=== PATIENT | female | born 1945 | race Caucasian/White ===

== ENCOUNTER 2017-04-26 01:01 | Inpatient (IN) ==
[2017-04-26] MEDS ORDERED: ONDANSETRON 4 MG/2 ML VIAL IV STA (01:20)
[2017-04-26] MEDS ORDERED: HYDROmorphone 2 MG/1 ML VIAL IV STA (01:20)
--- NOTE | 2017-04-26 01:26 | Emergency Department Note ---
Arrival - Arrival ED Nursing Triage Note: Pt arrives via ems with complaints of falling. Pt states that she did hit her head but did not have any loc. Hematoma noted to upper right forehead. Pt also complains of right hip pain. States that she can not bear any weight. + pulse noted + motor/sensory function noted to affected limb. No deformity or rotation noted at time of triage. Mode of Arrival: Stretcher Limitations: No Limitations Source: Patient - History of Present Illness Onset (ago): hour(s) (Patient presents 1 hour post incident) Date of Last Menstrual Period: pm <Felix Burgos - Last Filed: 04/26/17 01:23> <Behzad Kaur - Last Filed: 04/26/17 03:30> - Arrival Chief Complaint: Fall Stated Complaint: fall Time Seen by Provider: 04/26/17 01:20 - History of Present Illness HPI Narrative: This 71-year-old white female presents 1 hour post falling after going to sleep and getting up to go to the bathroom. The patient landed on her right side and since that time has not been able to weight-bear on her right leg. During the course the fall she bounced her head off the floor and now has a large bump on her right forehead. She denies loss of consciousness. She she also states a significant amount of low back pain after fall with radiation of the pain over both buttocks. Otherwise, she is without any other injury and is medically stable at this point time. (Felix Burgos) Allergies/Adverse Reactions: Allergies Allergy/AdvReac Type Severity Reaction Status Date / Time sulfamethoxazole AdvReac Mild Nausea Verified 07/24/16 06:14 [From Bactrim] trimethoprim [From Bactrim] AdvReac Mild Nausea Verified 07/24/16 06:14 Home Medications: Home Medications Medication Instructions Recorded Confirmed Type No Known Home Medications [No 04/26/17 04/26/17 History Known Home Medications] Review of System - Review of System 12 point system: reviewed and no additional remarkable complaints except as stated - Review of System Constitutional: Present: as per HPI Musculoskeletal: Present: as per HPI Neurological: Present: as per HPI <Felix Burgos - Last Filed: 04/26/17 01:23> Medical,Surgical,& Family Hx - Medical History Psychological: History of: Anxiety Disorders Neurology: History of: Peripheral Neuropathy No history of: Seizures HEENT: History of: HEENT Problems (Sinusitis) Endocrine: History of: Thyroid Disorder (Thyroid Nodule-Dr. Barnett to evaluate after lungs checked) Respiratory: History of: Bronchitis, Pneumonia (Flu Vac Current 4169-4207 Season /Pneum Vac 2013), Lung Cancer (Bronch by Dr. Orozco for lung mass 04/03/16), Respiratory Problems (Abnormal CT Chest (Rt Hilar Mass with lymphadenopathy) Dr. Orozco Bronch) Renal: History of: Renal Problems (Kidney Infection Jul 2015; February 2016) Gastrointestinal: History of: Diverticulitis/ Diverticulosis, GERD, Polyps Musculoskeletal: History of: Musculoskeletal Problems (Muscles Strain, dr santos rx PT FOR PATIENT) Other: No history of: Anesthesia Reactions, Cancer - Surgical History HEENT Surgeries: Surgical HX of: Eye Surgery (Cataract Lt/Rt), Tonsilectomy & Adenoidectomy (10 years old) Abdominal Surgeries: Surgical HX of: Cholecystectomy (1970), Colonoscopy ( Spring 2014 Dr. Francis) Reproductive Surgeries: Surgical HX of;: Dilation and Curettage - Family History Family History: Reports;: Family Cancer (PARENTS), Family Diabetes (GRANDMOTHER) - Social History Smoking Status: Current every day smoker Frequency of Alcohol Use: None Type of Drug Use: None <Felix Burgos - Last Filed: 04/26/17 01:23> Physical Examination: GENERAL: Well developed, well nourished elderly white female in no acute distress. HEENT: Normocephalic. 2 cm ecchymotic hematoma right forehead. Moist mucous membranes. EOMI. PERRLA. ENT NML NECK: Supple. No adenopathy. CARDIAC: Regular. No murmurs. Heart rate 81 CHEST: Clear to auscultation. No respiratory distress. O2 sat 94% ABDOMEN: Soft. Nontender. Active bowel sounds. EXTREMITIES: No trauma. Normal ROM all extremities except right lower extremity to which the patient cannot move due to pain. Paraspinal lumbar muscle spasm No pedal edema. SKIN: No diaphoresis. No rash. NEURO: Alert. Oriented 3. Motor, sensory, vibratory intact. No focal deficits. (Felix Burgos) Vital Signs: Vital Signs Temperature 98.2 F 04/26/17 01:01 Pulse Rate 81 04/26/17 01:01 Respiratory Rate 20 04/26/17 01:01 Blood Pressure 126/59 04/26/17 01:01 O2 Sat by Pulse Oximetry 94 L 04/26/17 01:01 Course <Felix Burgos - Last Filed: 04/26/17 01:23> - Reevaluation(s) Time: 03:27 <Behzad Kaur - Last Filed: 04/26/17 03:30> - Reevaluation(s) Reevaluation #1: The patient's pelvic fractures are well aligned and will probably need no treatment, however, the patient cannot ambulate and lives alone so she will need admission and probably transfer to rehab. I have discussed the patient with Dr. Flower who will see and admit. (Behzad Kaur) Results <Felix Burgos - Last Filed: 04/26/17 01:23> - Labs CBC & BMP: 04/26/17 02:03 04/26/17 02:03 Lab Results: I have reviewed the patients labs <Behzad Kaur - Last Filed: 04/26/17 03:30> - Impressions CT of the pelvis shows slightly displaced acute fractures of the right pubic rami, right colonic wall thickening and increased fluid content in the colon. CT of the lumbar spine shows no acute fractures. There is old compression fracture of L1. There is a loss of the upper posterior cortical line of the L1 vertebral body which may be a sequela of the old fracture or possibly a small destructive lesion. CT of the head shows no acute intracranial abnormality. (Behzad Kaur) Disposition <Felix Burgos - Last Filed: 04/26/17 01:23> Case discussed with: patient Time of Disposition: 03: <Behzad Kaur - Last Filed: 04/26/17 03:30> Clinical Impression: Hyponatremia, Pelvic fracture, Lung cancer Disposition: Still a Patient Condition: Stable
[2017-04-26] MEDS ORDERED: HYDROmorphone 2 MG/1 ML VIAL ONE (01:41)
[2017-04-26] MEDS ORDERED: ONDANSETRON 4 MG/2 ML VIAL ONE (01:45)
[2017-04-26 02:12] LABS: Basophils % 0.2 % (0.0-0.8); Eosinophils # 0.1 10*3/uL (0.0-0.87); Hematocrit 35.1 VOL% (35.7-47.0); Immature Granulocytes % 0.4 %; Immature Granulocytes Absolute 0.02 #; Lymphocytes # 1.1 10*3/uL (1.4-4.0); Lymphocytes % 22.7 % (21.3-54.2); Mean Corpuscular Hemoglobin 36 PG (27-34); Mean Corpuscular Volume 97.8 FL (87-102); Mean Platelet Volume 8.5 FL (9.6-12.0); Monocytes # 0.4 10*3/uL (0.11-0.8); Neutrophils # 3.4 10*3/uL (1.4-7.4); Neutrophils % 67.7 % (38.7-73.9); Platelet Count 162 T/CUMM (130-400); Red Blood Count 3.59 MC/CUMM (3.8-5.5); Red Cell Distribution Width 17.2 % (9.3-17.3)
[2017-04-26 02:22] LABS: Partial Thromboplastin Time 28.2 SECS (0-40)
[2017-04-26 02:30] LABS: Albumin 3.7 G/DL (3.4-5.0); Bilirubin,Total 1.2 MG/DL (0.2-1.0); Calcium 8.9 MG/DL (8.5-10.1); Osmolality,Calculated 254.2 MOS/KG (273-304); Potassium 3.7 MMOL/L (3.5-5.1)
[2017-04-26 02:49] LABS: Apearance,Urine CLEAR (Clear); Bacteria,Urine Occasional /HPF (Few); Bilirubin,Urine Negative (Negative); Blood, Urine Negative (Negative); Glucose,Urine (UA) Negative (Negative); Ketones,Urine Negative (Negative); Nitrite,Urine Negative (Negative); Protein,Urine Negative; RBC,Urine 1 /HPF (0-4); Squamous Epithelial Cell,Urine Occasional /HPF (0-10); Urine Color Yellow (Yellow); Urine Specific Gravity 1.004 (1.001-1.035); Urine Urobilinogen < 2.0 EU/DL (0.2-1.0); WBC,Urine 1 /HPF (0-6)
[2017-04-26 03:00] LABS: Barbiturates Screen,Urine Negative (Negative); Benzodiazepines Screen,Urine Negative (Negative); Cannabinoid Screen,Urine Negative (Negative); Opiate Screen,Urine Positive (Negative); Phencyclidine Screen,Urine Negative (Negative)
[2017-04-26] MEDS ORDERED: ACETAMINOPHEN 325 MG TABLET PO PRN (04:34)
[2017-04-26] MEDS ORDERED: ZALEPLON 5 MG CAPSULE PO PRN (04:34)
[2017-04-26] MEDS ORDERED: LACTULOSE 20 GM/30 ML UDCUP PO PRN (04:34)
[2017-04-26] MEDS ORDERED: MORPHINE 2 MG/1 ML SYRINGE IV PRN (04:34)
[2017-04-26] MEDS ORDERED: NICOTINE 21 MG/24 HR PATCH TRANSDERM PRN (04:34)
[2017-04-26] MEDS ORDERED: DOCUSATE SODIUM 100 MG CAPSULE PO PRN (04:34)
[2017-04-26] MEDS ORDERED: ONDANSETRON 4 MG/2 ML VIAL IV PRN (04:34)
--- NOTE | 2017-04-26 04:45 | Hospitalist History & Physical ---
Assessment and Plan - Time spent with patient Time spent with patient: Greater than 30 minutes (1) Pelvic fracture Status: Acute Assessment and plan: Patient sustained a fracture to the right pelvis which is stable and well aligned. She cannot bear any weight on her right side. However, pulses and blood flow are intact and she has full range of motion in the right leg. Admit for observation, pain management and physical therapy. Current Visit: Yes (2) Hyponatremia Status: Acute Assessment and plan: Likely secondary to dilution with free water given that the patient is on chemotherapy. Place on free water restriction and add salt tablets. Current Visit: Yes (3) Non-small cell carcinoma of lung, right Status: Acute Assessment and plan: Patient was initially diagnosed in March 2016. She is followed by Dr. Mckay and currently receives chemotherapy with Avastin IV q3wks. Her last treatment was . We will consult Dr. Mckay. Current Visit: Yes History of Present Illness Chief complaint: right hip pain s/p fall History of present illness: Ms. Post is a 71 year old white female with a past medical history significant for non small cell carcinoma of the right lung and tobacco use who presents to the ED today with complaints of right sided pain after sustaining a fall with onset 0 last night. the patient reports that she is followed by Dr. Mckay, takes Avastin IV every three weeks for her lung cancer and was last treated today. She notes that she often feels weak and has been experiencing some numbness and tingling in her feet along with dizziness. She also drinks a significant amount of water daily as directed with the chemotherapy. She tells me that she was preparing for bed, per usual, last night and went to turn the light off when she found herself falling onto the floor. She denies losing consciousness; rather she attributes the fall to imbalance. She further denies headache, blurry vision, chest pain, difficulty breathing, pain in her other extremities. She is a current everyday smoker and expresses no interest in quitting despite her diagnosis. Lab work reveals: WBC 5.0, hemoglobin 13.0, hematocrit 35.1, sodium 127, potassium 3.7, glucose 123. After discussing the case with Dr. Mcmahan, ER physician, and Dr. Flower, admitting physician, the patient will be admitted to the hospital medicine service for further evaluation and treatment. Patient is full code. Home medications have been reviewed and reconciled. Home Medications Medication Instructions Recorded Confirmed Type No Known Home Medications [No 04/26/17 04/26/17 History Known Home Medications] Allergies Allergy/AdvReac Type Severity Reaction Status Date / Time sulfamethoxazole AdvReac Mild Nausea Verified 07/24/16 06:14 [From Bactrim] trimethoprim [From Bactrim] AdvReac Mild Nausea Verified 07/24/16 06:14 Medical,Surgical,& Family Hx - Medical History Psychological: History of: Anxiety Disorders Neurology: History of: Peripheral Neuropathy No history of: Seizures HEENT: History of: HEENT Problems (Sinusitis) Endocrine: History of: Thyroid Disorder (Thyroid Nodule-Dr. Barnett to evaluate after lungs checked) Respiratory: History of: Bronchitis, Pneumonia (Flu Vac Current [id number] Season /Pneum Vac 2013), Lung Cancer (Bronch by Dr. Orozco for lung mass 04/03/16), Respiratory Problems (Abnormal CT Chest (Rt Hilar Mass with lymphadenopathy) Dr. Orozco Bronch) Renal: History of: Renal Problems (Kidney Infection Jul 2015; February 2016) Gastrointestinal: History of: Diverticulitis/ Diverticulosis, GERD, Polyps Musculoskeletal: History of: Musculoskeletal Problems (Muscles Strain, dr santos rx PT FOR PATIENT) Other: No history of: Anesthesia Reactions, Cancer - Surgical History HEENT Surgeries: Surgical HX of: Eye Surgery (Cataract Lt/Rt), Tonsilectomy & Adenoidectomy (10 years old) Abdominal Surgeries: Surgical HX of: Cholecystectomy (1970), Colonoscopy ( Spring 2014 Dr. Francis) Reproductive Surgeries: Surgical HX of;: Dilation and Curettage - Family History Family History: Reports;: Family Cancer (PARENTS), Family Diabetes (GRANDMOTHER) - Social History Smoking Status: Current every day smoker Have you smoked in the last 12 months: Yes Time spent discussing smoking cessation with patient: 3 to 10 minutes (4 min spent discussing smoking cessation) Frequency of Alcohol Use: None Type of Drug Use: None Marital Status: Single Lives With:: Alone Functional capacity: independent ambulation - Constitutional Constitutional: Present: fatigue, frequent falls, weakness - EENT Eyes: Absent: blurry vision, diplopia Ears: Absent: decreased hearing, ear pain Nose, mouth and throat: Absent: headache(s), hoarseness, sinus pressure - Cardiovascular Cardiovascular: Present: dyspnea. Absent: chest pain at rest, chest pain with activity, edema, radiating jaw, neck or arm pain, palpitations - Respiratory Respiratory: Present: cough, dyspnea. Absent: hemoptysis, dyspnea on exertion, wheezing, pain on inspiration - Gastrointestinal Gastrointestinal: Present: change in bowel habits. Absent: abdominal pain, constipation, nausea, vomiting - Genitourinary Genitourinary: Present: urinary frequency. Absent: difficulty urinating, dysuria - Musculoskeletal Musculoskeletal: Present: arthralgias. Absent: back pain - Neurological Neurological: Present: abnormal gait, dizziness, numbness. Absent: abnormal speech, confusion, syncope - Psychiatric Psychiatric: Absent: anxiety, depression - Endocrine Endocrine: Absent: cold intolerance, heat intolerance - Hematologic/Lymphatic Hematologic/Lymphatic: Absent: easy bleeding, easy bruising Exam - Constitutional Vitals: Period Temp Pulse Resp BP Sys/Beatty Pulse Ox Last 24 Hr 98.2 F-98.2 F 81-81 20-20 126-126/59-59 94 General appearance: normal weight, mild distress - Head Head exam: Present: normal inspection, normocephalic, atraumatic - Eye Eye exam: Present: EOMI Pupils: Present: TOMÁS - ENT ENT exam: Present: normal exam, normal external ear exam - Neck Neck exam: Present: normal inspection. Absent: lymphadenopathy, tenderness, thyromegaly - Respiratory Respiratory exam: Present: rhonchi. Absent: rales, wheezes - Cardiovascular Cardiovascular exam: Present: regular rate and rhythm. Absent: carotid bruit, JVD, rubs - GI/Abdominal GI/Abdominal exam: Present: normal bowel sounds. Absent: ascites, distended, mass, rebound - Extremities Exam Extremities exam: Present: full ROM, other (right pelvic fracture sustained s/p fall on right hip). Absent: normal capillary refill, edema - Neurological Exam Neurological exam: Present: alert, oriented X3, CN II-XII intact, reflexes normal - Psychiatric Psychiatric exam: Present: normal affect, normal mood - Skin Skin exam: Present: normal color, warm, dry, intact. Absent: erythema Results - Labs CBC & BMP: 04/26/17 02:03 04/26/17 02:03
--- NOTE | 2017-04-26 06:14 | CT Report ---
Exam: CT scan of brain without contrast Date: 04/26/2017 Indication: Headache pain head injury secondary to fall Comparison: 06/21/2014 Patient's classification: Emergency department Technical: Images were obtained from the skull base to the vertex without the use of intravenous contrast. Dose reduction was performed with decreasing kv and mA and automated exposure Total DLP: 1103.6 mGy*cm Findings: Study was reviewed by [facility]. Small vessel changes are present. The periventricular subcortical white matter regions reveal decreased attenuation. The ventricles are enlarged with component of atrophy. Brainstem cerebellum and cerebral hemispheres are otherwise intact. Minimal soft tissue swelling over the right frontal calvarium. Impression: 1. Small vessel ischemic change 2. Vascular calcinosis 3. Minimal soft tissue swelling over the right frontal calvarium 4. No acute intracranial hemorrhage infarction or mass effect. PROCEDURE INTERPRETED AT [facility] DEPARTMENT OF RADIOLOGY Final Report Signed by: Dr. Behzad Mims
--- NOTE | 2017-04-26 06:38 | CT Report ---
Exam: CT pelvis wo con Date: 04/26/2017 1:44 AM Comparison: None Indication: Question hip fracture secondary to fall Total DLP: 255.8 mGy*cm Technical: Images were obtained through the lower abdomen and pelvis with axial sagittal coronal imaging without contrast. Dose reduction was performed with decreasing kv and mA and automated exposure Findings: The study was initially reviewed by C. Bowel and mesentery. The exam reveals no evidence of bowel obstruction or appendicitis or free fluid present. Minimal diverticular changes present rectosigmoid colon. No obvious diverticulitis. Vascular plaque within the aorta iliac vessels. No obvious aneurysm otherwise noted The bladder is unremarkable. No free fluid or hematoma noted Some calcifications suggest phleboliths in the true pelvis with some degenerative leiomyoma changes present within the region of the uterus. Inguinal canals are otherwise unremarkable. Fracture of the pubic ramus on the right is present. Nondisplaced. This involves the inferior pubic ramus area. The anterior and posterior columns of the acetabulum are unremarkable bilaterally. The femoral head and neck regions are intact. The left pubic rami are unremarkable. Impression: 1. Nondisplaced inferior right pubic ramus fracture present with underlying osteopenia. 2. Degenerative leiomyoma changes present within the uterus. PROCEDURE INTERPRETED AT [facility] DEPARTMENT OF RADIOLOGY Final Report Signed by: Dr. Behzad Mims
--- NOTE | 2017-04-26 06:46 | CT Report ---
Exam: CT lumbar spine wo con Date: 04/26/2017 1:22 AM Comparison: None Indication: Status post fall back pain Total DLP: 1103.6 mGy*cm Technical: The study was initially reviewed by [facility] [place]. Axial sagittal and coronal images were available for review without use of intravenous contrast through the lumbosacral spine. Dose reduction was performed with decreasing kv and mA and automated exposure Findings: T11-T12: No obvious focal herniation or protrusion clearly demonstrated. T12/L1: Mild bulging of disc without compression deformity along the cephalic margin of L1. 5 mm retropulsion of bony fragments present and kyphosis present. Facet arthropathy is present. L1/2: No defined fracture at L2 with mild facet arthropathy.. Mild bulging present.. L2/3: Large Schmorl's node defect at L3 with broad-based bulging present and facet arthropathy. Moderate narrowing of the canal present and facet arthropathy noted.. L3/4: Broad-based bulging is present facet arthropathy with a component of mild canal stenosis.. L4/5: Circumferential disc bulging and facet arthropathy and hypertrophic change and ligament flavum in severe canal stenosis right greater than left but also extending into the left foramina.. Air vacuum phenomenon is also present. L5/S1: Mild bulging disc and facet arthropathy without obvious fractures.. Vascular calcification of the aorta present. Previous cholecystectomy clips are suspected. The kidneys are otherwise unremarkable. The sacrum and SI joints appear intact.. Impression: 1. Compression deformity at L1 which appears old with some retropulsion of bony fragment. 2. Schmorl's node defect present at L3 3. Multilevel degenerative disc disease and bulging and component of spinal canal stenosis present at multiple levels L2-3 L3-4 L4-5 and to a discrete L5-S1 with mild spinal canal narrowing at T12-L1 secondary to retropulsion of bony fragment. If further evaluation is warranted MRI is recommended thoracic lumbar spine PROCEDURE INTERPRETED AT [facility] DEPARTMENT OF RADIOLOGY Final Report Signed by: Dr. Behzad Mims
--- NOTE | 2017-04-26 06:48 | XRay Report ---
Exam: XR hip 2v w pelvis RT Date: 04/26/2017 1:20 AM Indication: Hip pain secondary to fall Technical AP pelvis and AP and frog-leg views the right hip. 3 images Comparison: None Findings: The femoral head and neck regions are intact. The right hip demonstrated with 2 views and the left hip with single view. The sacrum and SI joints are unremarkable. Phleboliths are present. Surgical clips present in the right upper abdomen from prior cholecystectomy. The superior pubic rami are intact. The inferior pubic ramus are demonstrated with subtle area that suggest possible fracture on the right. The left is unremarkable. Impression: 1. Question fracture of the inferior right pubic ramus CT is recommended for further evaluation. 2. Prior cholecystectomy. 3. Phleboliths in the true pelvis PROCEDURE INTERPRETED AT [facility] DEPARTMENT OF RADIOLOGY Final Report Signed by: Dr. Behzad Mims
--- NOTE | 2017-04-26 07:19 | XRay Report ---
Exam: XR chest 1V portable Date: 04/26/2017 1:21 AM Indication: Shortness of breath Comparison: 07/24/2016 Technical:AP semierect Findings: Left subclavian port catheter is again demonstrated with distal tip superior vena cava. Improved aeration with marked decrease in left base pleural effusion atelectatic change present. Some residual scarring is present in the bases bilaterally. Heart is normal in size. ASVD is present. Mediastinum and bony structures are otherwise intact. Impression: 1. Resolution of the left base pleural effusion with some residual scarring in the base bilaterally. 2. Stepsister left subclavian port catheter 3. ASVD. PROCEDURE INTERPRETED AT [facility] DEPARTMENT OF RADIOLOGY Final Report Signed by: Dr. Behzad Mims
[2017-04-26] MEDS: PANTOPRAZOLE 40 MG TABLET PO SCH (08:58)
[2017-04-26] MEDS: SODIUM BICARBONATE 650 MG TABLET PO SCH ×2 (08:59→20:34)
--- NOTE | 2017-04-26 09:03 | Oncology Progress Note ---
Oncology Subjective PN Interval history: Patient was seen and examined yesterday at the oncology office. She received maintenance bevacizumab for pulmonary adenocarcinoma clinical stage III which has been under good control recently. Hip fracture and overnight admission are noted. Potential complications from bevacizumab include thrombosis and poor wound healing. Patient would need DVT prophylaxis and aggressive mobilization. She also has continued to smoke and has active COPD. Exam - Constitutional Vitals: Period Temp Pulse Resp BP Sys/Beatty Pulse Ox Last 24 Hr 96.9 F-98.2 F 81-83 18-20 103-146/59-75 94-97 Results - Labs CBC & BMP: 04/26/17 02:03 04/26/17 02:03
--- NOTE | 2017-04-26 12:13 | Hospitalist Progress Note ---
Assessment and Plan - Time spent with patient Time spent with patient: Greater than 30 minutes (1) Lung cancer Status: Acute Assessment and plan: Dr. Mckay has seen the patient. Appreciate his assistance in evaluation. Current Visit: Yes (2) Pelvic fracture Status: Acute Assessment and plan: Orthopedics has been consulted. PT Current Visit: Yes (3) Hyponatremia Status: Acute Assessment and plan: Appears to have chronic hyponatremia. Does not appear to be on any medications that would cause hyponatremia. Despite having lung adenocarcinoma this may be paraneoplastic. Current Visit: Yes Hospitalist: Subjective Interval history: Ms. Post has no complaints this morning. She was admitted for pelvic fracture and orthopedics has been consulted for evaluation. Exam - Constitutional Vitals: Period Temp Pulse Resp BP Sys/Beatty Pulse Ox Last 24 Hr 96.9 F-98.2 F 79-83 18-20 103-146/59-75 94-97 General appearance: no acute distress - Head Head exam: Present: normocephalic, atraumatic - Eye Eye exam: Present: EOMI Pupils: Present: TOMÁS - ENT ENT exam: Present: normal exam - Neck Neck exam: Present: normal inspection - Respiratory Respiratory exam: Present: clear to auscultation bilaterally. Absent: rhonchi, wheezes - Cardiovascular Cardiovascular exam: Present: regular rate and rhythm. Absent: gallop, rubs, systolic murmur - GI/Abdominal GI/Abdominal exam: Present: normal bowel sounds, soft. Absent: distended, firm , guarding, tenderness, rebound - Extremities Exam Extremities exam: Present: normal inspection. Absent: calf tenderness, edema Results - Labs CBC & BMP: 04/26/17 02:03 04/26/17 02:03 Lab Results: I have reviewed the past 24 hour labs
--- NOTE | 2017-04-26 13:03 | Orthopedic Consult Note ---
History of Present Illness Chief complaint: Right pubic rami fracture History of present illness: Ms. Post is a 71 year old female admitted for acute onset of right hip and groin pain reportedly fell yesterday x-rays were negative a CT is confirmed minimally displaced fracture on the superior pubic root for which I was asked to evaluate she reportedly is ambulator she she has chronic low back pain but lives alone at home she is complaining only of right hip pain Examination confirms decreased range of motion at the right hip secondary to groin pain on the right side there is no crepitation or pain about the femur need to febrile ankle there is no pain on the left lower extremity or either upper extremity radiographs I do not see a fracture CT scan revealing a minimally displaced fracture involving the pubic root on the right side. Impression right pubic rami fracture Plan the patient can be instructed with PT advancing to weight-bear as tolerated once her comfort will allow. Follow-up with me in 4 weeks for x-ray Home Medications Medication Instructions Recorded Confirmed Type No Known Home Medications [No 04/26/17 04/26/17 History Known Home Medications] Allergies Allergy/AdvReac Type Severity Reaction Status Date / Time sulfamethoxazole AdvReac Mild Nausea Verified 07/24/16 06:14 [From Bactrim] trimethoprim [From Bactrim] AdvReac Mild Nausea Verified 07/24/16 06:14 Medical,Surgical,& Family Hx - Medical History Psychological: History of: Anxiety Disorders Neurology: History of: Peripheral Neuropathy No history of: Seizures HEENT: History of: HEENT Problems (Sinusitis) Endocrine: History of: Thyroid Disorder (Thyroid Nodule-Dr. Barnett to evaluate after lungs checked) Respiratory: History of: Bronchitis, Pneumonia (Flu Vac Current [id number] Season /Pneum Vac 2013), Lung Cancer (Bronch by Dr. Orozco for lung mass 04/03/16), Respiratory Problems (Abnormal CT Chest (Rt Hilar Mass with lymphadenopathy) Dr. Orozco Bronch) Renal: History of: Renal Problems (Kidney Infection Jul 2015; February 2016) Gastrointestinal: History of: Diverticulitis/ Diverticulosis, GERD, Polyps Musculoskeletal: History of: Back/Neck Problems, Musculoskeletal Problems ( Muscles Strain, dr santos rx PT FOR PATIENT) Other: History of: Cancer (lung) No history of: Anesthesia Reactions - Surgical History HEENT Surgeries: Surgical HX of: Eye Surgery (Cataract Lt/Rt), Tonsilectomy & Adenoidectomy (10 years old) Abdominal Surgeries: Surgical HX of: Cholecystectomy (1970), Colonoscopy ( Spring 2014 Dr. Francis) Reproductive Surgeries: Surgical HX of;: Dilation and Curettage - Family History Family History: Reports;: Family Cancer (PARENTS), Family Diabetes (GRANDMOTHER) - Social History Smoking Status: Current every day smoker Frequency of Alcohol Use: None Type of Drug Use: None Exam - Constitutional Vitals: Period Temp Pulse Resp BP Sys/Beatty Pulse Ox Last 24 Hr 96.9 F-98.2 F 79-83 18-20 103-146/59-75 94-97 Results - Labs CBC & BMP: 04/26/17 02:03 04/26/17 02:03
[2017-04-27 07:37] LABS: Basophils % 0.3 % (0.0-0.8); Eosinophils # 0.1 10*3/uL (0.0-0.87); Eosinophils % 3.4 % (0.00-10.9); Hematocrit 36.6 VOL% (35.7-47.0); Immature Granulocytes % 0.6 %; Immature Granulocytes Absolute 0.02 #; Lymphocytes # 0.8 10*3/uL (1.4-4.0); Lymphocytes % 25.4 % (21.3-54.2); Mean Corpuscular HGB Conc 35.5 GM/DL (32-36); Mean Corpuscular Hemoglobin 35 PG (27-34); Mean Corpuscular Volume 99.7 FL (87-102); Monocytes # 0.3 10*3/uL (0.11-0.8); Monocytes % 7.8 % (1.7-12.7); Neutrophils % 62.5 % (38.7-73.9); Platelet Count 147 T/CUMM (130-400); Red Blood Count 3.67 MC/CUMM (3.8-5.5); Red Cell Distribution Width 17.5 % (9.3-17.3); White Blood Count 3.2 T/CUMM (4-12)
[2017-04-27 07:44] VITALS: BP 115/69
[2017-04-27 08:14] LABS: Calcium 8.6 MG/DL (8.5-10.1); Osmolality,Calculated 264.4 MOS/KG (273-304); Potassium 4.3 MMOL/L (3.5-5.1)
--- NOTE | 2017-04-27 09:04 | Discharge Summary ---
Hospital Course - Hospital Course Hospital Course: Ms. Post was admitted for evaluation of right hip pain post fall. CT of her pelvis revealed a nondisplaced inferior right pubic ramus pelvic fracture. She was seen by orthopedics who recommended nonoperative management. She is also seen by physical therapy and social work and arrange for inpatient rehab. By discharge she had met maximum benefit of hospitalization. I spent 32 minutes coordinating this discharge. - Time spent with patient Time with patient DS: Greater than 30 minutes Diagnosis - Discharge Diagnosis (1) Lung cancer Status: Acute (2) Pelvic fracture Status: Acute (3) Hyponatremia Status: Acute Specialty Discharge - Follow Up or Referrals Follow up with: Canelo Veliz Jr., MD [Physician] - 05/23/17 1:00 pm Discharge Plan - Discharge Data Disposition: Disch/Xfer-Ip Rehab Fac Condition at Discharge: Stable Discharge Diet: advance to your usual diet - Discharge Medications New Nicotine 21 mg/24 Hr Patch [Nicoderm CQ 21 mg/24 hr Patch] 1 patch TRANSDERM DAILY PRN #10 patch PRN Reason: Nicotine Cravings HYDROcodone/ACETAMIN 7.5-325 [[place] 7.5-325] 1 tablet PO Q4H PRN #10 tablet PRN Reason: Pain Moderate (4-7) - Follow Up or Referral Follow Up: Canelo Veliz Jr., MD [Physician] - 05/23/17 1:00 pm - Forms/Instructions Instructions: Pelvic Fracture (DC), Hip Fracture (GEN) Exam - Constitutional Vitals: Period Temp Pulse Resp BP Sys/Beatty Pulse Ox Last 24 Hr 97.6 F-99.1 F 79-102 16-20 101-135/64-69 90-98 General appearance: normal weight - Head Head exam: Present: normal inspection - Eye Eye exam: Present: EOMI Pupils: Present: TOMÁS - ENT ENT exam: Present: normal exam - Neck Neck exam: Present: normal inspection - Respiratory Respiratory exam: Present: clear to auscultation bilaterally. Absent: accessory muscle use, prolonged expiratory phase, wheezes - Cardiovascular Cardiovascular exam: Present: regular rate and rhythm. Absent: bradycardia, irregular rhythm, systolic murmur - GI/Abdominal GI/Abdominal exam: Present: normal bowel sounds. Absent: ascites, distended - Extremities Exam Extremities exam: Present: normal inspection Discharge Results Procedures and tests throughout hospitalization: Pending Orders 04/28/17 04:00 Basic Metabolic Panel IN AM Comp Blood Count Auto Diff IN AM 04/29/17 04:00 Basic Metabolic Panel IN AM Comp Blood Count Auto Diff IN AM Labs on day of discharge: Labs from last 24 hours 04/27/17 04/27/17 06:53 06:53 WBC 3.2 L D RBC 3.67 L Hgb 13.0 Hct 36.6 MCV 99.7 MCH 35 H MCHC 35.5 RDW 17.5 H Plt Count 147 MPV 9.0 L Neut % (Auto) 62.5 Lymph % (Auto) 25.4 [place] % (Auto) 7.8 Eos % (Auto) 3.4 Baso % (Auto) 0.3 Neut # (Auto) 2.0 Lymph # (Auto) 0.8 L [place] # (Auto) 0.3 Eos # (Auto) 0.1 Baso # (Auto) 0.0 Immature Gran % 0.6 Nucleated RBC % 0.0 Immature Gran # 0.02 Nucleated RBCs # 0.00 Sodium 133 L Potassium 4.3 Chloride 93 L Carbon Dioxide 31 Anion Gap 13.3 BUN 6 L Creatinine 0.70 GFR Calculation 92 BUN/Creatinine Ratio 8.00 Glucose 115 H Calculated Osmolality 264.4 L Calcium 8.6 DS: Provider Date of admission: 04/26/17 04:35 Primary care physician: Yared Alfaro Attending physician on admission: Jatin Flower MD Consults: 04/26/17 04:34 Consult to Physician [CONS] Routine Comment: right pelvic fracture Consulting Provider: Canelo Veliz Jr. Consulting Provider Notified: Yes When should Consulting Provider be notified: Now Person Notified: kendall called Date Notified: 04/26/17 Time Notified: 08:06 04/26/17 05:07 Consult to Physical Therapy [CONS] Routine Reason for Physical Therapy: Evaluate and Treat Start Therapy: Today Consult Comment: Pelvic fracture status post fall 04/26/17 07:28 Consult to Physician [CONS] Routine Comment: lung cancer, patient known to you Consulting Provider: Ru Mckay Consulting Provider Notified: Yes When should Consulting Provider be notified: Now Person Notified: concepción called Date Notified: 04/26/17 Time Notified: 08:35 04/26/17 13:04 Consult to Physical Therapy [CONS] Routine Reason for Physical Therapy: Evaluate and Treat Consult Comment: Advance to weight-bear as tolerated on right Discharging clinician: Brynn Armando MD Expected date of discharge: 04/27/17
[2017-04-27] MEDS: SODIUM BICARBONATE 650 MG TABLET PO SCH (09:22)
[2017-04-27] MEDS: PANTOPRAZOLE 40 MG TABLET PO SCH (09:22)
== END 2017-04-27 12:30 | DRG 536 ==
LOC: EDUNIT# → EDBD → N.ED 01:01 → N.EDINP 04:34 → SUATTDRO 04:34 → N.3E 05:18
PROVIDERS: ADMIT Family Medicine; ATTEND Internal Medicine

== ENCOUNTER 2017-08-20 01:55 | Inpatient (IN) ==
[2017-08-20] MEDS ORDERED: MORPHINE 2 MG/1 ML SYRINGE IV STA (02:01)
[2017-08-20] MEDS ORDERED: ONDANSETRON 4 MG/2 ML VIAL IV STA (02:01)
[2017-08-20] MEDS ORDERED: ONDANSETRON 4 MG/2 ML VIAL ONE ×3 (02:21→13:01)
[2017-08-20] MEDS ORDERED: MORPHINE 2 MG/1 ML SYRINGE ONE ×2 (02:22)
[2017-08-20] MEDS ORDERED: HYDROmorphone 2 MG/1 ML VIAL IV STA (02:23)
[2017-08-20] MEDS ORDERED: HYDROmorphone 2 MG/1 ML VIAL ONE ×2 (02:27→13:02)
[2017-08-20 02:51] LABS: Basophils % 0.2 % (0.0-0.8); Eosinophils % 0.1 % (0.00-10.9); Hematocrit 43.1 VOL% (35.7-47.0); Hemoglobin 15.6 GM/DL (12.0-16.0); Immature Granulocytes % 0.5 %; Immature Granulocytes Absolute 0.07 #; Lymphocytes # 1.3 10*3/uL (1.4-4.0); Mean Corpuscular HGB Conc 36.2 GM/DL (32-36); Mean Corpuscular Hemoglobin 33 PG (27-34); Mean Corpuscular Volume 90.7 FL (87-102); Mean Platelet Volume 9.1 FL (9.6-12.0); Monocytes # 0.8 10*3/uL (0.11-0.8); Monocytes % 6.1 % (1.7-12.7); Neutrophils # 11.1 10*3/uL (1.4-7.4); Neutrophils % 83.1 % (38.7-73.9); Platelet Count 199 T/CUMM (130-400); Red Blood Count 4.75 MC/CUMM (3.8-5.5); Red Cell Distribution Width 14.3 % (9.3-17.3); White Blood Count 13.4 T/CUMM (4-12)
[2017-08-20 03:03] LABS: PT Patient Result 10.7 SECS; Partial Thromboplastin Time 27.2 SECS (0-40)
[2017-08-20 03:18] LABS: Albumin 3.5 G/DL (3.4-5.0); Bilirubin,Total 0.6 MG/DL (0.2-1.0); Calcium 9.1 MG/DL (8.5-10.1); Osmolality,Calculated 255.2 MOS/KG (273-304); Total Protein 7.9 G/DL (6.4-8.3)
[2017-08-20 04:54] LABS: Apearance,Urine CLEAR (Clear); Bacteria,Urine Occasional /HPF (Few); Bilirubin,Urine Negative (Negative); Blood, Urine Negative (Negative); Glucose,Urine (UA) Negative (Negative); Ketones,Urine Negative (Negative); Mucus,Urine Occasional /LPF (Occasional); Nitrite,Urine Negative (Negative); Protein,Urine Negative; Squamous Epithelial Cell,Urine Occasional /HPF (0-10); Urine Color Yellow (Yellow); Urine Specific Gravity 1.008 (1.001-1.035); Urine Urobilinogen < 2.0 EU/DL (0.2-1.0); WBC,Urine 1 /HPF (0-6)
[2017-08-20] MEDS ORDERED: fentaNYL 100 MCG/2 ML VIAL IV PRN (06:25)
[2017-08-20] MEDS ORDERED: ONDANSETRON 4 MG/2 ML VIAL IV PRN ×2 (06:25→13:19)
[2017-08-20] MEDS: SODIUM CHLORIDE 0.9% 1,000 ML IV SCH (06:56)
[2017-08-20] MEDS ORDERED: oxyCODONE IR 5 MG TABLET PO PRN (07:57)
[2017-08-20] MEDS ORDERED: ENOXAPARIN 40 MG/0.4 ML SYRINGE SUBCUT SCH (09:00)
[2017-08-20] MEDS ORDERED: PROPOFOL 200 MG/20 ML VIAL IV ONE (11:20)
[2017-08-20] MEDS ORDERED: ROCURONIUM 100 MG/10 ML VIAL IV ONE (11:20)
[2017-08-20] MEDS ORDERED: PHENYLEPHRINE 1 MG/10 ML SYRINGE IV ONE (11:20)
[2017-08-20] MEDS ORDERED: GLYCOPYRROLATE 0.4 MG/2 ML VIAL ONE (11:20)
[2017-08-20] MEDS ORDERED: NEOSTIGMINE 10 MG/10 ML VIAL ONE (11:20)
[2017-08-20] MEDS ORDERED: LIDOCAINE 2% 5 ML VIAL ONE (11:20)
[2017-08-20] MEDS ORDERED: BISACODYL 10 MG SUPP RECTAL PRN (12:40)
[2017-08-20] MEDS ORDERED: MAGNESIUM HYDROXIDE SUSP 30 ML UDCUP PO PRN (12:40)
[2017-08-20] MEDS ORDERED: PROMETHAZINE 25 MG/1 ML VIAL IM PRN (12:40)
[2017-08-20] MEDS ORDERED: LACTULOSE 20 GM/30 ML UDCUP PO PRN (12:40)
[2017-08-20] MEDS ORDERED: SEVOFLURANE 1 UNIT/15 MINUTE INH ONE (13:03)
[2017-08-20] MEDS ORDERED: fentaNYL 100 MCG/2 ML VIAL ONE (13:04)
[2017-08-20] MEDS ORDERED: MIDAZOLAM 2 MG/2 ML VIAL ONE (13:04)
[2017-08-20] MEDS ORDERED: HYDROmorphone 2 MG/1 ML VIAL IV PRN (13:19)
[2017-08-20] MEDS: NICOTINE 21 MG/24 HR PATCH TRANSDERM PRN (15:23)
[2017-08-20] MEDS: PANTOPRAZOLE 40 MG VIAL IV SCH (15:25)
[2017-08-20] MEDS: MULTIVITAMIN (CENTRUM) TABLET PO SCH (16:12)
[2017-08-20] MEDS: MAGNESIUM GLUCONATE 500 MG TABLET PO SCH (16:12)
[2017-08-20] MEDS: CYANOCOBALAMIN 500 MCG TABLET PO SCH (16:13)
[2017-08-20] MEDS: CHOLECALCIFEROL 1,000 UNIT TABLET PO SCH (16:14)
[2017-08-20] MEDS: QUEtiapine 25 MG TABLET PO SCH (21:16)
[2017-08-21] MEDS: HYDROmorphone 2 MG/1 ML VIAL IV PRN ×4 (00:06→20:57)
[2017-08-21] MEDS: SODIUM CHLORIDE 0.9% 1,000 ML IV SCH ×2 (03:30→22:30)
[2017-08-21 03:43] LABS: Basophils % 0.4 % (0.0-0.8); Eosinophils # 0.2 10*3/uL (0.0-0.87); Eosinophils % 3.3 % (0.00-10.9); Hematocrit 34.8 VOL% (35.7-47.0); Hemoglobin 12.1 GM/DL (12.0-16.0); Immature Granulocytes % 0.2 %; Immature Granulocytes Absolute 0.01 #; Lymphocytes # 1.3 10*3/uL (1.4-4.0); Lymphocytes % 27.9 % (21.3-54.2); Mean Corpuscular HGB Conc 34.8 GM/DL (32-36); Mean Corpuscular Hemoglobin 33 PG (27-34); Mean Corpuscular Volume 94.1 FL (87-102); Mean Platelet Volume 9.6 FL (9.6-12.0); Monocytes # 0.3 10*3/uL (0.11-0.8); Monocytes % 7.2 % (1.7-12.7); Neutrophils # 2.8 10*3/uL (1.4-7.4); Platelet Count 120 T/CUMM (130-400); Red Cell Distribution Width 14.5 % (9.3-17.3); White Blood Count 4.6 T/CUMM (4-12)
[2017-08-21 03:48] LABS: Calcium 8.2 MG/DL (8.5-10.1); Magnesium 1.7 MG/DL (1.8-2.4); Osmolality,Calculated 264.4 MOS/KG (273-304); Potassium 4.8 MMOL/L (3.5-5.1)
[2017-08-21] MEDS ORDERED: ENOXAPARIN 30 MG/0.3 ML SYRINGE SUBCUT SCH (06:44)
[2017-08-21] MEDS: MAGNESIUM GLUCONATE 500 MG TABLET PO SCH (09:16)
[2017-08-21] MEDS: CHOLECALCIFEROL 1,000 UNIT TABLET PO SCH (09:19)
[2017-08-21] MEDS: MULTIVITAMIN (CENTRUM) TABLET PO SCH (09:19)
[2017-08-21] MEDS: CYANOCOBALAMIN 500 MCG TABLET PO SCH (09:19)
[2017-08-21] MEDS: PANTOPRAZOLE 40 MG VIAL IV SCH (09:20)
[2017-08-21] MEDS: QUEtiapine 25 MG TABLET PO SCH (20:51)
[2017-08-22] MEDS: HYDROmorphone 2 MG/1 ML VIAL IV PRN ×3 (01:45→12:12)
[2017-08-22 03:47] LABS: Basophils % 0.2 % (0.0-0.8); Eosinophils # 0.1 10*3/uL (0.0-0.87); Eosinophils % 2.4 % (0.00-10.9); Hematocrit 32.5 VOL% (35.7-47.0); Hemoglobin 11.3 GM/DL (12.0-16.0); Immature Granulocytes % 0.2 %; Immature Granulocytes Absolute 0.01 #; Lymphocytes # 1.1 10*3/uL (1.4-4.0); Lymphocytes % 21.7 % (21.3-54.2); Mean Corpuscular HGB Conc 34.8 GM/DL (32-36); Mean Corpuscular Hemoglobin 33 PG (27-34); Mean Corpuscular Volume 94.2 FL (87-102); Monocytes # 0.5 10*3/uL (0.11-0.8); Monocytes % 9.5 % (1.7-12.7); Neutrophils # 3.4 10*3/uL (1.4-7.4); Platelet Count 104 T/CUMM (130-400); Red Blood Count 3.45 MC/CUMM (3.8-5.5); Red Cell Distribution Width 14.3 % (9.3-17.3); White Blood Count 5.1 T/CUMM (4-12)
[2017-08-22 04:30] LABS: Calcium 8.7 MG/DL (8.5-10.1); Magnesium 1.6 MG/DL (1.8-2.4); Osmolality,Calculated 264.5 MOS/KG (273-304); Potassium 4.9 MMOL/L (3.5-5.1)
[2017-08-22 05:19] LABS: Hypochromasia 1+; Ovalocytes Slight; Platelet Estimate Decreased
[2017-08-22] MEDS ORDERED: ENOXAPARIN 40 MG/0.4 ML SYRINGE SUBCUT SCH (08:00)
[2017-08-22] MEDS: PANTOPRAZOLE 40 MG VIAL IV SCH (08:48)
[2017-08-22] MEDS: MULTIVITAMIN (CENTRUM) TABLET PO SCH (08:55)
[2017-08-22] MEDS: MAGNESIUM GLUCONATE 500 MG TABLET PO SCH (08:55)
[2017-08-22] MEDS: CYANOCOBALAMIN 500 MCG TABLET PO SCH (08:56)
[2017-08-22] MEDS: CHOLECALCIFEROL 1,000 UNIT TABLET PO SCH (08:56)
[2017-08-22] MEDS: NICOTINE 21 MG/24 HR PATCH TRANSDERM PRN (10:30)
[2017-08-22 14:06] VITALS: BP 102/57
== END 2017-08-22 15:00 | DRG 481 ==
LOC: N.ED 01:55 → N.EDINP 05:09 → N.3E 05:36
PROVIDERS: ADMIT Internal Medicine; ATTEND Internal Medicine

== ENCOUNTER 2019-07-07 10:33 | Inpatient (IN) ==
[2019-07-07] MEDS ORDERED: ONDANSETRON 4 MG/2 ML VIAL IV STA (11:33)
[2019-07-07] MEDS ORDERED: SODIUM CHLORIDE 0.9% 1,000 ML IV STA (11:33)
[2019-07-07 11:45] LABS: Basophils % 0.4 % (0.0-0.8); Eosinophils # 0.1 10*3/uL (0.0-0.87); Eosinophils % 1.9 % (0.00-10.9); Hematocrit 41.3 VOL% (35.7-47.0); Hemoglobin 14.3 GM/DL (12.0-16.0); Immature Granulocytes % 0.4 %; Immature Granulocytes Absolute 0.02 #; Lymphocytes # 0.6 10*3/uL (1.4-4.0); Lymphocytes % 11.8 % (21.3-54.2); Mean Corpuscular HGB Conc 34.6 GM/DL (32-36); Mean Platelet Volume 9.1 FL (9.6-12.0); Monocytes % 7.9 % (1.7-12.7); Neutrophils % 77.6 % (38.7-73.9); Platelet Count 238 T/CUMM (130-400); Red Blood Count 4.09 MC/CUMM (3.8-5.5); White Blood Count 4.7 T/CUMM (4-12)
[2019-07-07 12:05] LABS: Alanine Aminotransferase 17 U/L (13-56); Albumin 3.7 G/DL (3.4-5.0); Alkaline Phosphatase 92 U/L (45-117); Amylase 19 U/L (25-115); Aspartate Amino Transferase 16 U/L (0-37); Blood Urea Nitrogen 16 MG/DL (7-18); Calcium 9.7 MG/DL (8.5-10.1); Glucose 134 MG/DL (74-106); Osmolality,Calculated 266.5 MOS/KG (273-304); Total Protein 7.9 G/DL (6.4-8.3); Troponin I < 0.015 NG/ML (0.00-0.045)
[2019-07-07 12:26] LABS: Apearance,Urine Slightly Hazy (Clear); Bilirubin,Urine Negative (Negative); Blood, Urine Negative (Negative); Glucose,Urine (UA) Negative (Negative); Hyaline Casts,Urine 5 /LPF (0-3); Ketones,Urine Negative (Negative); Nitrite,Urine Negative (Negative); Protein,Urine Negative; Squamous Epithelial Cell,Urine Occasional /HPF (0-10); Transitional Epi Cells,Urine Occasional /HPF (<1); Urine Color Yellow (Yellow); Urine Specific Gravity 1.008 (1.001-1.035); Urine Urobilinogen < 2.0 EU/DL (0.2-1.0)
[2019-07-07] MEDS ORDERED: ACETAMINOPHEN 325 MG TABLET PO PRN (13:57)
[2019-07-07] MEDS ORDERED: ONDANSETRON 4 MG/2 ML VIAL IV PRN (13:57)
[2019-07-07 14:27] LABS: Thyroid Stimulating Hormone 4.43 uIU/ml (0.358-3.74)
[2019-07-07] MEDS: SODIUM CHLORIDE 0.9% 1,000 ML IV SCH (16:15)
[2019-07-07] MEDS: ENOXAPARIN 40 MG/0.4 ML SYRINGE SUBCUT SCH (17:07)
[2019-07-07] MEDS: NICOTINE 21 MG/24 HR PATCH TRANSDERM PRN (18:35)
[2019-07-07] MEDS: ACYCLOVIR 200 MG CAPSULE PO SCH (20:33)
[2019-07-07] MEDS: GABAPENTIN 300 MG CAPSULE PO SCH (20:33)
[2019-07-08] MEDS: SODIUM CHLORIDE 0.9% 1,000 ML IV SCH ×2 (02:40→16:09)
[2019-07-08 06:50] LABS: Basophils % 0.4 % (0.0-0.8); Eosinophils # 0.1 10*3/uL (0.0-0.87); Eosinophils % 3.2 % (0.00-10.9); Hematocrit 36.6 VOL% (35.7-47.0); Hemoglobin 12.5 GM/DL (12.0-16.0); Immature Granulocytes % 0.4 %; Immature Granulocytes Absolute 0.01 #; Lymphocytes # 0.5 10*3/uL (1.4-4.0); Lymphocytes % 15.8 % (21.3-54.2); Mean Corpuscular HGB Conc 34.2 GM/DL (32-36); Mean Corpuscular Volume 103.1 FL (87-102); Mean Platelet Volume 9.1 FL (9.6-12.0); Neutrophils % 68.2 % (38.7-73.9); Platelet Count 193 T/CUMM (130-400); Red Blood Count 3.55 MC/CUMM (3.8-5.5); Red Cell Distribution Width 14.2 % (9.3-17.3); White Blood Count 2.8 T/CUMM (4-12)
[2019-07-08 07:12] LABS: Calcium 8.9 MG/DL (8.5-10.1); Osmolality,Calculated 272.7 MOS/KG (273-304); Risk Ratio 3.77; VLDL CHOLESTEROL 23.4 MG/DL
[2019-07-08] MEDS: LEVOTHYROXINE 75 MCG TABLET PO SCH (09:13)
[2019-07-08] MEDS: MULTIVITAMIN (CENTRUM) TABLET PO SCH (09:14)
[2019-07-08] MEDS: POTASSIUM CHLORIDE 20 MEQ TABLET PO SCH (09:15)
[2019-07-08] MEDS: DULoxetine 30 MG CAPSULE PO SCH (09:15)
[2019-07-08] MEDS: MAGNESIUM GLUCONATE 500 MG TABLET PO SCH (09:16)
[2019-07-08] MEDS: CYANOCOBALAMIN 500 MCG TABLET PO SCH (09:17)
[2019-07-08] MEDS: PANTOPRAZOLE 40 MG TABLET PO SCH (09:17)
[2019-07-08] MEDS: CHOLECALCIFEROL 1,000 UNIT TABLET PO SCH (09:19)
[2019-07-08] MEDS: ACYCLOVIR 200 MG CAPSULE PO SCH ×3 (09:20→21:00)
[2019-07-08] MEDS: ENOXAPARIN 40 MG/0.4 ML SYRINGE SUBCUT SCH (15:37)
[2019-07-08] MEDS: GABAPENTIN 300 MG CAPSULE PO SCH (21:00)
[2019-07-08] MEDS: NICOTINE 21 MG/24 HR PATCH TRANSDERM PRN (21:00)
[2019-07-09 05:45] LABS: Basophils % 0.5 % (0.0-0.8); Eosinophils # 0.1 10*3/uL (0.0-0.87); Eosinophils % 5.1 % (0.00-10.9); Hematocrit 38.9 VOL% (35.7-47.0); Hemoglobin 13.3 GM/DL (12.0-16.0); Lymphocytes # 0.5 10*3/uL (1.4-4.0); Lymphocytes % 24.9 % (21.3-54.2); Mean Corpuscular HGB Conc 34.2 GM/DL (32-36); Mean Corpuscular Volume 101.8 FL (87-102); Mean Platelet Volume 9.5 FL (9.6-12.0); Monocytes % 11.1 % (1.7-12.7); Neutrophils % 58.4 % (38.7-73.9); Platelet Count 204 T/CUMM (130-400); Red Blood Count 3.82 MC/CUMM (3.8-5.5); Red Cell Distribution Width 13.9 % (9.3-17.3); White Blood Count 2.2 T/CUMM (4-12)
[2019-07-09 06:04] LABS: Calcium 9.4 MG/DL (8.5-10.1); Osmolality,Calculated 279.1 MOS/KG (273-304)
[2019-07-09 06:08] LABS: Hypochromasia 1+; Platelet Estimate Adequate
[2019-07-09] MEDS: SODIUM CHLORIDE 0.9% 1,000 ML IV SCH ×2 (06:31→18:28)
[2019-07-09] MEDS: LEVOTHYROXINE 75 MCG TABLET PO SCH (06:31)
[2019-07-09] MEDS: MULTIVITAMIN (CENTRUM) TABLET PO SCH (08:53)
[2019-07-09] MEDS: CYANOCOBALAMIN 500 MCG TABLET PO SCH (08:53)
[2019-07-09] MEDS: CHOLECALCIFEROL 1,000 UNIT TABLET PO SCH (08:53)
[2019-07-09] MEDS: ACYCLOVIR 200 MG CAPSULE PO SCH ×3 (08:54→21:23)
[2019-07-09] MEDS ORDERED: ROPIVACAINE 0.5% 30 ML VIAL ONE (11:05)
[2019-07-09] MEDS ORDERED: methylPREDNISolone ACETATE 40 MG/1 ML VIAL ONE (11:08)
[2019-07-09] MEDS ORDERED: methylPREDNISolone ACETATE 80 MG/1 ML VIAL ONE (11:08)
[2019-07-09] MEDS ORDERED: TISSUE ADHESIVE 1 EACH APPLICATOR TOP ONE (11:23)
[2019-07-09] MEDS ORDERED: ceFAZolin 1,000 MG VIAL ONE (12:13)
[2019-07-09] MEDS ORDERED: MIDAZOLAM 2 MG/2 ML VIAL ONE (12:52)
[2019-07-09] MEDS ORDERED: fentaNYL 100 MCG/2 ML VIAL ONE (12:52)
[2019-07-09] MEDS ORDERED: PROPOFOL 200 MG/20 ML VIAL IV ONE (12:52)
[2019-07-09] MEDS ORDERED: ONDANSETRON 4 MG/2 ML VIAL ONE ×2 (12:53→13:06)
[2019-07-09] MEDS ORDERED: SODIUM CHLORIDE 0.9% 100 ML IV ONE (12:53)
[2019-07-09] MEDS: MORPHINE 10 MG/1 ML VIAL IV PRN ×2 (13:05→13:12)
[2019-07-09] MEDS ORDERED: MORPHINE 10 MG/1 ML VIAL ONE (13:06)
[2019-07-09] MEDS ORDERED: ONDANSETRON 4 MG/2 ML VIAL IV PRN (13:14)
[2019-07-09] MEDS ORDERED: MORPHINE 10 MG/1 ML VIAL IV PRN (13:30)
[2019-07-09] MEDS: DULoxetine 30 MG CAPSULE PO SCH (14:29)
[2019-07-09] MEDS: MAGNESIUM GLUCONATE 500 MG TABLET PO SCH (14:29)
[2019-07-09] MEDS: POTASSIUM CHLORIDE 20 MEQ TABLET PO SCH (14:30)
[2019-07-09] MEDS: PANTOPRAZOLE 40 MG TABLET PO SCH (14:33)
[2019-07-09] MEDS: ENOXAPARIN 40 MG/0.4 ML SYRINGE SUBCUT SCH (14:35)
[2019-07-09] MEDS: LACTULOSE 20 GM/30 ML UDCUP PO PRN (14:44)
[2019-07-09] MEDS: traMADol 50 MG TABLET PO PRN (18:12)
[2019-07-09] MEDS: GABAPENTIN 300 MG CAPSULE PO SCH (21:26)
[2019-07-10] MEDS: SODIUM CHLORIDE 0.9% 1,000 ML IV SCH ×2 (05:56→16:14)
[2019-07-10] MEDS: LEVOTHYROXINE 75 MCG TABLET PO SCH (06:00)
[2019-07-10] MEDS: CHOLECALCIFEROL 1,000 UNIT TABLET PO SCH (09:16)
[2019-07-10] MEDS: DULoxetine 30 MG CAPSULE PO SCH (09:16)
[2019-07-10] MEDS: ACYCLOVIR 200 MG CAPSULE PO SCH ×3 (09:16→21:12)
[2019-07-10] MEDS: MAGNESIUM GLUCONATE 500 MG TABLET PO SCH (09:16)
[2019-07-10] MEDS: TAMSULOSIN 0.4 MG CAPSULE PO SCH (09:16)
[2019-07-10] MEDS: CYANOCOBALAMIN 500 MCG TABLET PO SCH (09:16)
[2019-07-10] MEDS: PANTOPRAZOLE 40 MG TABLET PO SCH (09:16)
[2019-07-10] MEDS: MULTIVITAMIN (CENTRUM) TABLET PO SCH (09:16)
[2019-07-10] MEDS: POTASSIUM CHLORIDE 20 MEQ TABLET PO SCH (09:16)
[2019-07-10] MEDS: traMADol 50 MG TABLET PO PRN ×2 (09:40→21:12)
[2019-07-10] MEDS: ENOXAPARIN 40 MG/0.4 ML SYRINGE SUBCUT SCH (14:38)
[2019-07-10] MEDS: LACTULOSE 20 GM/30 ML UDCUP PO PRN (14:52)
[2019-07-10] MEDS: GABAPENTIN 300 MG CAPSULE PO SCH (21:12)
[2019-07-11] MEDS: SODIUM CHLORIDE 0.9% 1,000 ML IV SCH ×2 (05:35→19:09)
[2019-07-11 05:56] LABS: Basophils % 0.3 % (0.0-0.8); Eosinophils # 0.1 10*3/uL (0.0-0.87); Eosinophils % 3.2 % (0.00-10.9); Hematocrit 38.2 VOL% (35.7-47.0); Hemoglobin 13.2 GM/DL (12.0-16.0); Immature Granulocytes % 0.3 %; Immature Granulocytes Absolute 0.01 #; Lymphocytes # 0.6 10*3/uL (1.4-4.0); Lymphocytes % 18.2 % (21.3-54.2); Mean Corpuscular HGB Conc 34.6 GM/DL (32-36); Mean Corpuscular Volume 99.7 FL (87-102); Mean Platelet Volume 9.8 FL (9.6-12.0); Monocytes % 10.2 % (1.7-12.7); Neutrophils % 67.8 % (38.7-73.9); Platelet Count 208 T/CUMM (130-400); Red Blood Count 3.83 MC/CUMM (3.8-5.5); Red Cell Distribution Width 13.7 % (9.3-17.3); White Blood Count 3.1 T/CUMM (4-12)
[2019-07-11] MEDS: NICOTINE 21 MG/24 HR PATCH TRANSDERM PRN (06:02)
[2019-07-11] MEDS: LEVOTHYROXINE 75 MCG TABLET PO SCH (06:03)
[2019-07-11 06:11] LABS: Calcium 9.4 MG/DL (8.5-10.1); Osmolality,Calculated 273.7 MOS/KG (273-304)
[2019-07-11] MEDS: PANTOPRAZOLE 40 MG TABLET PO SCH (09:00)
[2019-07-11] MEDS: CYANOCOBALAMIN 500 MCG TABLET PO SCH (09:00)
[2019-07-11] MEDS: TAMSULOSIN 0.4 MG CAPSULE PO SCH (09:00)
[2019-07-11] MEDS: MULTIVITAMIN (CENTRUM) TABLET PO SCH (09:00)
[2019-07-11] MEDS: DULoxetine 30 MG CAPSULE PO SCH (09:00)
[2019-07-11] MEDS: ACYCLOVIR 200 MG CAPSULE PO SCH ×3 (09:00→20:16)
[2019-07-11] MEDS: CHOLECALCIFEROL 1,000 UNIT TABLET PO SCH (09:00)
[2019-07-11] MEDS: POTASSIUM CHLORIDE 20 MEQ TABLET PO SCH (09:00)
[2019-07-11] MEDS: MAGNESIUM GLUCONATE 500 MG TABLET PO SCH (10:25)
[2019-07-11] MEDS: traMADol 50 MG TABLET PO PRN ×2 (10:38→18:46)
[2019-07-11] MEDS ORDERED: MAGNESIUM CITRATE 300 ML BOTTLE PO ONE (11:18)
[2019-07-11] MEDS: POLYETHYLENE GLYCOL POWDER 17 GM PACK PO SCH (11:49)
[2019-07-11] MEDS: ENOXAPARIN 40 MG/0.4 ML SYRINGE SUBCUT SCH (15:00)
[2019-07-11] MEDS: GABAPENTIN 300 MG CAPSULE PO SCH (20:17)
[2019-07-12] MEDS: LEVOTHYROXINE 75 MCG TABLET PO SCH (06:04)
[2019-07-12 06:06] LABS: Basophils % 0.7 % (0.0-0.8); Eosinophils # 0.1 10*3/uL (0.0-0.87); Eosinophils % 2.9 % (0.00-10.9); Immature Granulocytes % 0.4 %; Immature Granulocytes Absolute 0.01 #; Lymphocytes # 0.7 10*3/uL (1.4-4.0); Lymphocytes % 25.5 % (21.3-54.2); Mean Corpuscular HGB Conc 34.2 GM/DL (32-36); Mean Corpuscular Volume 100.8 FL (87-102); Mean Platelet Volume 9.7 FL (9.6-12.0); Monocytes % 11.7 % (1.7-12.7); Neutrophils % 58.8 % (38.7-73.9); Platelet Count 203 T/CUMM (130-400); Red Blood Count 3.77 MC/CUMM (3.8-5.5); White Blood Count 2.7 T/CUMM (4-12)
[2019-07-12 06:15] LABS: Calcium 9.3 MG/DL (8.5-10.1); Osmolality,Calculated 273.5 MOS/KG (273-304)
[2019-07-12] MEDS: POLYETHYLENE GLYCOL POWDER 17 GM PACK PO SCH (09:33)
[2019-07-12] MEDS: DULoxetine 30 MG CAPSULE PO SCH (09:35)
[2019-07-12] MEDS: MAGNESIUM GLUCONATE 500 MG TABLET PO SCH (09:35)
[2019-07-12] MEDS: CHOLECALCIFEROL 1,000 UNIT TABLET PO SCH (09:36)
[2019-07-12] MEDS: ACYCLOVIR 200 MG CAPSULE PO SCH ×3 (09:38→20:12)
[2019-07-12] MEDS: POTASSIUM CHLORIDE 20 MEQ TABLET PO SCH (09:38)
[2019-07-12] MEDS: CYANOCOBALAMIN 500 MCG TABLET PO SCH (09:39)
[2019-07-12] MEDS: TAMSULOSIN 0.4 MG CAPSULE PO SCH (09:39)
[2019-07-12] MEDS: PANTOPRAZOLE 40 MG TABLET PO SCH (09:40)
[2019-07-12] MEDS: MULTIVITAMIN (CENTRUM) TABLET PO SCH (09:40)
[2019-07-12] MEDS: NICOTINE 21 MG/24 HR PATCH TRANSDERM PRN (11:07)
[2019-07-12] MEDS: SODIUM CHLORIDE 0.9% 1,000 ML IV SCH (11:11)
[2019-07-12] MEDS ORDERED: FUROSEMIDE 20 MG/2 ML VIAL IV ONE (13:55)
[2019-07-12] MEDS: ENOXAPARIN 40 MG/0.4 ML SYRINGE SUBCUT SCH (15:38)
[2019-07-12] MEDS: GABAPENTIN 300 MG CAPSULE PO SCH (20:12)
[2019-07-12] MEDS: traMADol 50 MG TABLET PO PRN (20:13)
[2019-07-13] MEDS: LEVOTHYROXINE 75 MCG TABLET PO SCH (06:35)
[2019-07-13] MEDS: DULoxetine 30 MG CAPSULE PO SCH (08:44)
[2019-07-13] MEDS: POLYETHYLENE GLYCOL POWDER 17 GM PACK PO SCH (08:45)
[2019-07-13] MEDS: CYANOCOBALAMIN 500 MCG TABLET PO SCH (08:45)
[2019-07-13] MEDS: CHOLECALCIFEROL 1,000 UNIT TABLET PO SCH (08:45)
[2019-07-13] MEDS: MAGNESIUM GLUCONATE 500 MG TABLET PO SCH (08:45)
[2019-07-13] MEDS: ACYCLOVIR 200 MG CAPSULE PO SCH ×3 (08:45→21:43)
[2019-07-13] MEDS: TAMSULOSIN 0.4 MG CAPSULE PO SCH (08:45)
[2019-07-13] MEDS: traMADol 50 MG TABLET PO PRN ×2 (08:46→21:43)
[2019-07-13] MEDS: POTASSIUM CHLORIDE 20 MEQ TABLET PO SCH (08:46)
[2019-07-13] MEDS: MULTIVITAMIN (CENTRUM) TABLET PO SCH (08:46)
[2019-07-13] MEDS: PANTOPRAZOLE 40 MG TABLET PO SCH (08:46)
[2019-07-13] MEDS: ENOXAPARIN 40 MG/0.4 ML SYRINGE SUBCUT SCH (17:12)
[2019-07-13] MEDS: GABAPENTIN 300 MG CAPSULE PO SCH (21:44)
[2019-07-14] MEDS: LEVOTHYROXINE 75 MCG TABLET PO SCH (06:51)
[2019-07-14] MEDS: POLYETHYLENE GLYCOL POWDER 17 GM PACK PO SCH (08:16)
[2019-07-14] MEDS: PANTOPRAZOLE 40 MG TABLET PO SCH (08:18)
[2019-07-14] MEDS: CHOLECALCIFEROL 1,000 UNIT TABLET PO SCH (08:18)
[2019-07-14] MEDS: MULTIVITAMIN (CENTRUM) TABLET PO SCH (08:18)
[2019-07-14] MEDS: POTASSIUM CHLORIDE 20 MEQ TABLET PO SCH (08:18)
[2019-07-14] MEDS: CYANOCOBALAMIN 500 MCG TABLET PO SCH (08:18)
[2019-07-14] MEDS: TAMSULOSIN 0.4 MG CAPSULE PO SCH (08:18)
[2019-07-14] MEDS: ACYCLOVIR 200 MG CAPSULE PO SCH (08:18)
[2019-07-14] MEDS: MAGNESIUM GLUCONATE 500 MG TABLET PO SCH (08:18)
[2019-07-14] MEDS: DULoxetine 30 MG CAPSULE PO SCH (08:18)
[2019-07-14] MEDS: NICOTINE 21 MG/24 HR PATCH TRANSDERM PRN (09:51)
[2019-07-14] MEDS: traMADol 50 MG TABLET PO PRN (10:22)
[2019-07-14] MEDS ORDERED: INFLUENZA VIRUS VACCINE 0.5 ML SYRINGE IM ONE (10:24)
[2019-07-14 11:56] VITALS: BP 79/53
== END 2019-07-14 14:34 | disposition swing bed (61) | DRG 478 ==
LOC: N.EDINP 10:33 → N.ED 10:33 → SUPCPDRO 13:57 → N.EDINP 15:51 → N.4E 15:57
PROVIDERS: ADMIT Internal Medicine; ATTEND Internal Medicine